=== PATIENT | male | born 1955 | race Caucasian/White ===

== ENCOUNTER 2017-11-07 07:03 | Emergency (ER) | payer OTHER ==
[2017-11-07 07:27] VITALS: BP 124/78
[2017-11-07] MEDS ORDERED: DOXYcycline CAP(*) 100 MG ONE (07:45)
[2017-11-07] MEDS ORDERED: Doxycycline (NF) 100 MG TAB PO SCH (09:00)
--- NOTE | 2017-11-07 11:37 | UC ---
Richard Mohamud Stephanie, [facility] on 11/07/17 at 0744 . Bite Injury/Animal HPI - HPI Summary HPI Summary: In Room Note: The pt is a 62 y/o M presenting to with c/o tick bite that occurred on 11/06/17. Symptoms include erythema around the bite site. The pt states the tick was on his body for about 24 hours. He denies allergies to medications. The pt denies serious reasons for recent hospitalizations. Note: The pt is a 62 y/o M with hx of type 2 diabetes and essential HTN. Vital signs stable. Nurse Note: Patient states that on he was outside working and now he believes he has a tick bite to the right side of his abdomen. He states his removed the tick. - History of Current Complaint Chief Complaint: [facility] Stated Complaint: TICK BITE Time Seen by Provider: 11/07/17 07:11 Hx Obtained From: Patient Severity Currently: Mild Pain Intensity: 0 Pain Scale Used: 0-10 Numeric Onset/Duration: Lasting Hours - 24, Resolved Type of Bite: Wild Animal - Tick Has Animal Been Immunized?: No Aggravating Factor(s): Nothing Alleviating Factor(s): Nothing Associated Signs And Symptoms: Positive: Erythema Hx of Bite: Unprovoked Animal Available for Observation: No - Allergies/Home Medications Allergies/Adverse Reactions: Allergies Allergy/AdvReac Type Severity Reaction Status Date / Time No Known Allergies Allergy Verified 11/07/17 07:18 Home Medications: Home Medications Aspirin [Adult Aspirin] 81 mg PO DAILY 11/07/17 [History Confirmed 11/07/17] Lisinopril/HCTZ 04/02.5(NF) [Zestoretic 10.5(NF)] 1 tab PO DAILY 11/07/17 [ History Confirmed 11/07/17] Multivitamin [Multivitamins] 1 each PO DAILY 11/07/17 [History Confirmed ] Bradshaw-3/Dha/Epa/Fish Oil [Bradshaw 3 500 Softgel] 1 each PO DAILY 11/07/17 [ History Confirmed 11/07/17] Rosuvastatin Calcium [Crestor] 20 mg PO DAILY 11/07/17 [History Confirmed ] PMH/Surg Hx/FS Hx/Imm Hx Endocrine History: Diabetes Cardiovascular History: Hypertension - Surgical History Surgical History: None - Family History Known Family History: Positive: Cardiac Disease, Other - prostate cancer - Social History Occupation: Employed Full-time Lives: With Family Alcohol Use: Occasionally Substance Use Type: None Smoking Status (MU): Never Smoked Tobacco Have You Smoked in the Last Year: No Review of Systems Constitutional: Negative Skin: Other - erythema around site of tick bite Eyes: Negative ENT: Negative Respiratory: Negative Cardiovascular: Negative Gastrointestinal: Negative Genitourinary: Negative Motor: Negative Neurovascular: Negative Musculoskeletal: Negative Neurological: Negative Psychological: Negative Is Patient Immunocompromised?: No All Other Systems Reviewed And Are Negative: Yes Physical Exam - Summary Physical Exam Summary: Appearance: The patient is well-appearing, is in no pain distress, and is well- nourished. Eyes: Conjunctiva are clear. ENT: The hearing is grossly normal, the pharynx is normal, and the TMs are normal. There is no muffled or hoarse voice. Neck: The neck is supple and there is no lymphadenopathy. Respiratory: The chest is nontender. The lungs are clear, there are normal breath sounds, and there is no respiratory distress. Cardiovascular: Heart is regular rate and rhythm. There is no murmur. Abdomen: The abdomen is soft and nontender. There is no organomegaly. Bowel sounds: present Musculoskeletal: Strength is intact. The patient moves all extremities. Neurological: The patient is alert. Psychological: The patient displays age appropriate behavior Skin: Negative for rashes. IN RIGHT POSTERIOR THORAX ALONG THE POSTERIOR AXILLARY LINE AT APPROXIMATELY T8 THERE IS A 2.5 CM BITE SITE WITH A CENTRAL CRUST OF APPROXIMATELY 3 MM. THERE IS SOME SURROUNDING NON-CONFLUENT ERYTHEMA MOST CONSISTENT WITH IRRITATION FROM A BANDAID. THERE IS NO EVIDENCE OF TICK HEAD OR CELLULITIS OR LYMPHANGITIS. Triage Information Reviewed: Yes Vital Signs: Initial Vital Signs Temp 97.7 F 11/07/17 07:22 Pulse 72 11/07/17 07:22 Resp 16 11/07/17 07:22 BP 124/78 11/07/17 07:22 Pulse Ox 99 11/07/17 07:22 Vital Signs Reviewed: Yes Bite Injury Course/Dx - Course Course Of Treatment: Pt comes in with tick bite, tick removed, no foreign body under skin. Tick there for 24 hrs. ED physician will give 1 200 mg dose of doxycycline. Pt has been instructed with respect to possible signs and symptoms pf Lyme. - Differential Dx/Diagnosis Differential Diagnosis/HQI/PQRI: Other - Tick bite vs other Provider Diagnoses: tick bite. tick removed by patient Discharge - Sign-Out/Discharge Documenting (check all that apply): Discharge/Admit/Transfer - discharge - Discharge Plan Condition: Stable Disposition: HOME Patient Education Materials: Lyme Disease (ED), Tick Bite (ED) Referrals: [facility] [place] PHYSICIAN REFERRAL [Outside] - 3 Days Additional Instructions: WE DISCUSSED: TICK BITES: You have been "attacked" by a tick. Once the tick is removed, these "bites " usually cause no problems. Tick fever, tick paralysis, [place] Spotted fever, and Lyme disease are very rare -- but you should mention this tick bite to your doctor if you develop unusual symptoms in the next several weeks. If you develop any of the following, please see your physician promptly: (1) Fever, chills, or generalized malaise associated with a headache. (2) A rash. (3) Joint pain, joint swelling or generalized weakness. (4) Redness, swelling, or drainage at the site of the bite. Check yourself, your children and your pets for ticks whenever you've been in an area where ticks live. To remove a tick, grasp it firmly with some tweezers as close to its head as possible and pull it out twisting the tweezers in a counter-clockwise direction. As we discussed: you have been given doxycycline prophylaxis against Lyme Disease. Watch for redness that might suggest cellulitis. CELLULITIS Cellulitis is an infection of the skin. This infection can be mild, or it can be very serious. We usually treat cellulitis with an antibiotic and with warm soaks to the infected area. We will need to see you frequently to be sure that the infection is not spreading. Please notify us at once if you see red streaks going up from the infected area or if you have fever or chills. PLEASE SEEK CARE AT THE EMERGENCY DEPARTMENT IF SYMPTOMS WORSEN OR IF NEW SYMPTOMS DEVELOP. The documentation as recorded by the Richard garcia Stephanie accurately reflects the service I personally performed and the decisions made by , Destin Gao MD.
== END 2017-11-07 07:57 | disposition home or self-care (01) ==
LOC: UCEAST 07:03
DX: S30.861A Insect bite (nonvenomous) of abdominal wall, initial encounter (principal); W57.XXXA Bitten or stung by nonvenomous insect and other nonvenomous arthropods, initial encounter; Y93.9 Activity, unspecified; Y92.007 Garden or yard of unspecified non-institutional (private) residence as the place of occurrence of the external cause; E11.9 Type 2 diabetes mellitus without complications; I10 Essential (primary) hypertension
CPT/HCPCS: 99211; A9270-GY; G0463

== ENCOUNTER 2018-08-29 11:45 | Emergency (ER) | payer OTHER ==
--- NOTE | 2018-08-29 11:52 | UC ---
Respiratory Complaint HPI - HPI Summary HPI Summary: 63 yo male presents with dry cough for the last 3 weeks. Pt's thinks pt was wheezing last night while in bed. Pt tells me that about 1 month ago he had prostate surgery in [place] under general anesthesia. His cough began a day or two after that. He has been seen by his surgeon since that time and exam was WNL. Surgery had no complications per pt. He has been taking mucinex with no change in his symptoms. Denies fever, chills, sinus symptoms, sore throat, SOB, chest pain. - History of Current Complaint Stated Complaint: RESP COMPLAINT Time Seen by Provider: 08/29/18 11:51 Hx Obtained From: Patient Onset/Duration: Gradual Onset Character: Cough: Nonproductive - Allergies/Home Medications Allergies/Adverse Reactions: Allergies Allergy/AdvReac Type Severity Reaction Status Date / Time atorvastatin [From Lipitor] AdvReac Leg Cramps Verified 08/29/18 11:50 Home Medications: Home Medications Cholecalciferol (Vitamin D3) [Vitamin D3] 1,000 unit PO DAILY 08/29/18 [History Confirmed 08/29/18] Sildenafil (PULMONARY)(NF) [Revatio (NF)] 20 mg PO DAILY 08/29/18 [History Confirmed 08/29/18] metFORMIN* [Glucophage 500 MG TAB *] 500 mg PO BID 08/29/18 [History Confirmed 08/29/18] PMH/Surg Hx/FS Hx/Imm Hx Endocrine History: Diabetes, Dyslipidemia Cardiovascular History: Hypertension - Surgical History Surgical History: None - Family History Known Family History: Positive: Cardiac Disease, Other - prostate cancer - Social History Lives: With Family Alcohol Use: Occasionally Substance Use Type: None Smoking Status (MU): Never Smoked Tobacco Have You Smoked in the Last Year: No Review of Systems All Other Systems Reviewed And Are Negative: Yes Constitutional: Positive: Negative Skin: Positive: Negative Eyes: Positive: Negative ENT: Positive: Negative Respiratory: Positive: Cough Cardiovascular: Positive: Negative Gastrointestinal: Positive: Negative Neurovascular: Positive: Negative Neurological: Positive: Negative Psychological: Positive: Negative Physical Exam - Summary Physical Exam Summary: GENERAL: NAD. WDWN. No pain distress. SKIN: No rashes, sores, lesions, or open wounds. HEENT: Head: AT/NC Eyes: EOM intact. Conjunctiva clear without inflammation or discharge. Ears: Hearing grossly normal. TMs intact, no bulging, erythema, or edema. Nose: Nasal mucosa pink and moist. NTTP maxillary and frontal sinus. Throat: Posterior oropharynx without exudates, erythema, or tonsillar enlargement. Uvula midline. NECK: Supple. Nontender. No lymphadenopathy. CHEST: CTAB. No r/r/w. No accessory muscle use. Breathing comfortably and in no distress. CV: RRR. Without m/r/g. Pulses intact. Cap refill <2seconds NEURO: Alert. PSYCH: Age appropriate behavior. Triage Information Reviewed: Yes Vital Signs: Vital Signs: Temp Pulse Resp BP Pulse Ox 98.7 F 106 18 114/72 96 08/29/18 11:50 08/29/18 12:46 08/29/18 11:50 08/29/18 12:46 08/29/18 11:50 Vital Signs Reviewed: Yes Respiratory Course/Dx - Course Course Of Treatment: CXR: IMPRESSION: #. No evidence for acute intrathoracic disease. Suspect irritant cough/bronchitis. Will try him with cough medications and an albuterol inhaler. Advised to f/u with PCP if symptoms do not improve. - Differential Dx/Diagnosis Provider Diagnosis: Cough Discharge - Sign-Out/Discharge Documenting (check all that apply): Patient Departure All imaging exams completed and their final reports reviewed: No Studies - Discharge Plan Condition: Stable Disposition: HOME Prescriptions: Albuterol HFA INHALER* [Ventolin HFA Inhaler*] 1 puff INH Q8H PRN #1 mdi PRN Reason: Wheezing Benzonatate CAP* [Tessalon 100 MG CAP*] 100 mg PO TID PRN #21 cap PRN Reason: Cough Codeine Phosphate/Guaifenesin [Guaifen-Codeine 100-10 mg/5 ml] 5 ml PO BEDTIME PRN #35 ml MDD 5mL PRN Reason: Cough Patient Education Materials: Acute Cough (ED) Referrals: Kristian Cross [Primary Care Provider] - Additional Instructions: If you develop a fever, shortness of breath, chest pain, new or worsening symptoms - please call your PCP or go to the ED. Your blood pressure was high at todays visit. Please see your primary provider within 4 weeks for recheck and re-evaluation. - Billing Disposition and Condition Condition: STABLE Disposition: Home
[2018-08-29 12:47] VITALS: BP 114/72
== END 2018-08-29 12:57 | disposition home or self-care (01) ==
LOC: UCEAST 11:45
DX: R05 Cough (principal); E11.9 Type 2 diabetes mellitus without complications; Z79.84 Long term (current) use of oral hypoglycemic drugs; I10 Essential (primary) hypertension; Z88.8 Allergy status to other drugs, medicaments and biological substances
CPT/HCPCS: 71046; 99212; G0463

== ENCOUNTER 2018-09-07 18:57 | Emergency (ER) | payer OTHER ==
[2018-09-07 19:09] VITALS: BP 131/87
--- NOTE | 2018-09-07 19:30 | UC ---
Respiratory Complaint HPI - HPI Summary HPI Summary: 63-year-old male comes in with a chief complaint of cough and chest congestion for one month. No fevers or chills. Patient has used guaifenesin with codeine which helps with the cough. Tessalon Perles if not helped. Cough started after having prostate surgery in July 2018. No chest pain no pedal edema no calf tenderness no history of DVT or pulmonary embolus. Patient has not been on antibiotic. - History of Current Complaint Chief Complaint: [facility] Stated Complaint: COUGH Time Seen by Provider: 09/07/18 19:10 Pain Intensity: 0 - Allergies/Home Medications Allergies/Adverse Reactions: Allergies Allergy/AdvReac Type Severity Reaction Status Date / Time atorvastatin [From Lipitor] AdvReac Leg Cramps Verified 08/29/18 11:50 PMH/Surg Hx/FS Hx/Imm Hx Previously Healthy: Yes Endocrine History: Diabetes Cardiovascular History: Hypertension - Surgical History Surgical History: Yes Surgery Procedure, Year, and Place: Prostate surgery 08/06/2018 - Family History Known Family History: Positive: Cardiac Disease, Other - prostate cancer - Social History Alcohol Use: Occasionally Substance Use Type: None Smoking Status (MU): Never Smoked Tobacco Have You Smoked in the Last Year: No Review of Systems All Other Systems Reviewed And Are Negative: Yes Constitutional: Positive: Negative Skin: Positive: Negative Eyes: Positive: Negative ENT: Negative: Sore Throat Respiratory: Positive: Cough Cardiovascular: Negative: Chest Pain Gastrointestinal: Positive: Negative Motor: Positive: Negative Neurovascular: Positive: Negative Musculoskeletal: Positive: Negative Neurological: Positive: Negative Psychological: Positive: Negative Is Patient Immunocompromised?: No Physical Exam Triage Information Reviewed: Yes Appearance: Well-Appearing, No Pain Distress, Well-Nourished Vital Signs: Initial Vital Signs Temp 98.8 F 09/07/18 19:02 Pulse 100 09/07/18 19:02 Resp 18 09/07/18 19:02 BP 131/87 09/07/18 19:02 Pulse Ox 96 09/07/18 19:02 Vital Signs Reviewed: Yes Eye Exam: Normal Eyes: Positive: Conjunctiva Clear ENT: Positive: Pharynx normal, TMs normal Neck exam: Normal Neck: Positive: Supple Respiratory: Positive: Lungs clear, Normal breath sounds, No respiratory distress Cardiovascular: Positive: RRR Musculoskeletal Exam: Normal Musculoskeletal: Positive: Strength Intact, ROM Intact, No Edema, Other: - no calf tenderness Neurological Exam: Normal Neurological: Positive: Alert, Muscle Tone Normal Psychological Exam: Normal Psychological: Positive: Normal Response To Family, Age Appropriate Behavior Skin Exam: Normal Respiratory Course/Dx - Course Course Of Treatment: The plan today is to treat with an antibiotic, 5 days steroid and a cough syrup with codeine. Follow-up with primary care doctor. Potential follow-up with pulmonary if not improved. Patient has no calf pain or tenderness no history DVT or PE. If this does not clear patient could need further evaluation to potentially include a CTA of the chest. If patient worsens or any questions or concerns he is to get reevaluated right away. - Differential Dx/Diagnosis Provider Diagnosis: Bronchitis with bronchospasm Discharge - Sign-Out/Discharge Documenting (check all that apply): Patient Departure All imaging exams completed and their final reports reviewed: No Studies - Discharge Plan Condition: Stable Disposition: HOME Prescriptions: Azithromyxin JESSI (NF) [Z-Jessi (Zithromax) 250 mg tabs #6] 2 tab PO .TODAY, THEN 1 DAILY #6 tab Codeine Phosphate/Guaifenesin [Codeine-Guaifen 10-100 mg/5 ml] 5 ml PO Q4HR PRN #120 ml MDD 30ML PRN Reason: Cough predniSONE TAB* [Deltasone 20 MG TAB*] 40 mg PO DAILY #10 tab Patient Education Materials: Acute Bronchitis (ED), Bronchospasm (ED) Referrals: Kristian Cross [Primary Care Provider] - Tammy Lovelace MD [Medical Doctor] - Additional Instructions: FOLLOW UP WITH YOUR PRIMARY CARE DOCTOR AND/OR DR LOVELACE, PULMONARY MEDICINE. GET RECHECKED FOR ANY WORSENING OF YOUR CONDITION; FEVER, SHORTNESS OF BREATH, YOU FEEL ILL OR QUESTIONS OR CONCERNS. - Billing Disposition and Condition Condition: STABLE Disposition: Home
== END 2018-09-07 19:30 | disposition home or self-care (01) ==
LOC: UCEAST 18:57
DX: J40 Bronchitis, not specified as acute or chronic (principal); J98.01 Acute bronchospasm; I10 Essential (primary) hypertension; E11.9 Type 2 diabetes mellitus without complications; Z88.8 Allergy status to other drugs, medicaments and biological substances
CPT/HCPCS: 99212; G0463